=== PATIENT | female | born 1965 | race Caucasian/White ===

== ENCOUNTER 2024-07-02 11:31 | Outpatient (CLI) | payer BC, SELFPAY ==
--- NOTE | 2024-07-02 11:50 | XR_ITS ---
FINAL REPORT CLINICAL HISTORY: assess fecal burden-stool in right colon COMPARISON: None FINDINGS: SINGLE VIEW ABDOMEN A single view of the abdomen was obtained. There is a nonobstructive bowel gas pattern. There is moderate stool present in the right colon, with moderate to large stool present in the left colon. There are no abnormally dilated loops of small bowel. No abnormal calcifications are identified. Postoperative changes are present in the left upper quadrant. IMPRESSION: Nonobstructive bowel gas pattern with a moderate to large stool burden as described above. Reviewed, Interpreted and Dictated by Rahul Yeager III, MD Transcribed by Shruti Conte Authenticated and [facility]
== END 2024-07-02 23:59 | disposition home or self-care (01) ==
PROVIDERS: PCP Family Medicine; Visit Provider Internal Medicine Gastroenterology
DX: R14.0 Abdominal distension (gaseous) (principal); K30 Functional dyspepsia
CPT/HCPCS: 74018

== ENCOUNTER 2024-07-04 15:39 | Outpatient (CLI) | payer BC, SELFPAY ==
[2024-07-07 15:18] LABS: Pancreatic Elastase, Fecal >800 (>200)
== END 2024-07-04 23:59 | disposition home or self-care (01) ==
LOC: LAB 15:41
PROVIDERS: PCP Internal Medicine Medical Oncology; Visit Provider Internal Medicine Gastroenterology
DX: R14.0 Abdominal distension (gaseous) (principal); K30 Functional dyspepsia
CPT/HCPCS: 82656

== ENCOUNTER 2024-10-06 11:47 | Day surgery (SDC) | payer BC, SELFPAY ==
[2024-10-02 14:19] VITALS: BMI 19.1
[2024-10-06 12:11] VITALS: BP 108/65; PULSE 76; RESP 18; TEMP 36.3; O2SAT 98
[2024-10-06] MEDS: LACTATED RINGERS 1000ML 1,000 ML 50 ML IV (12:21)
--- NOTE | 2024-10-06 12:49 | EXP.ANES.CKL ---
[facility] Disclaimer: The information contained in this section may have been updated after the patient was seen, as this information can be updated by other users. Medical History Celiac artery compression syndrome Anxiety and depression Surgical History History of hernia surgery History of ankle surgery Family History Father Cancer Social History (Updated 10/06/24 @ 12:13 by Silvia Tavarez RN) Smoking Status: Current every day smoker alcohol intake: current substance use type: denies use current occupational status: unemployed Travel in the last 8 weeks: None caffeine: Yes [facility] Anesthesia Checklist Patient Identification Patient Identification: Verbal (Name & ) Structural Data Admitted From: Home Planned Operative Procedure/s: egd Consent for Planned Operative Procedure(s) Verified: Yes NPO Status Verified Time NPO: 00:00 Airway Assessment Mallampati Score:: Class II C-Spine Mobility Assessed: Yes TMJ Mobility Assessed: Yes Dentition: Good Dentition Neurological Assessment Level of Consciousness: Awake, Alert and Appropriate Anesthesia Plan Anesthesia Risk discussed: Yes Anesthesia Plan: Verified ASA Class: II Anesthesia Type: MAC
--- NOTE | 2024-10-06 13:48 | EXP.HP ---
History of Present Illness *Admission Date: 10/06/24 *Reason for visit:: Dyspepsia *History of present illness: Mrs. Jean is a 59-year-old female who is here for initial gastroenterology consultation secondary to ongoing severe dyspepsia. She reports epigastric abdominal pain, bloating, nausea and early satiety. She gets moderate gassiness and belching. She reports regular bowel function but sometimes has softer stools. 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 She did have several CT angiograms and had reparative surgery at [facility] on 09/16/2021. This did not result in any complete resolution of her symptoms. She is now on hydrocodone for her abdominal pain. She does have a history of moderate anxiety disorder as well. The patient's last colonoscopy was 5 to 10 years ago. She has not had any recent endoscopy. She does take hydrocodone, Zofran and Phenergan. She does have some trouble maintaining weight and states that she will have pain after eating/postprandially. [facility] Disclaimer: The information contained in this section may have been updated after the patient was seen, as this information can be updated by other users. Medical History Celiac artery compression syndrome Anxiety and depression Surgical History History of hernia surgery History of ankle surgery Family History Father Cancer Social History (Updated 10/06/24 @ 12:50 by Margarito Bowling CRNA) Smoking Status: Current every day smoker alcohol intake: current substance use type: denies use current occupational status: unemployed Travel in the last 8 weeks: None caffeine: Yes Have you lived/traveled outside [place] in past 30 days?: No Contact w/someone who lives/traveled outside [place] past 30 days?: No Exposure to someone with infectious disease in past 14 days?: No Do you have a fever (greater than 100.4 F or 38 C)?: No Have you tested positive for COVID-19: No Exposed to someone with COVID-19 in past 14 days?: No Do you have a sore throat?: No Do you have a cough?: No Do you have any weakness?: No Are you experiencing any nausea/vomitting?: No Do you have any diarrhea?: No Are you experiencing any unusual bleeding?: No Do you have any muscle aches/pain?: No Do you have any abdominal pain?: No Are you experiencing loss of taste or smell?: No Review of Systems Review of Systems Review of systems (narrative): Negative *Cardiovascular Comments: Negative *Gastrointestinal Comments: Negative *Genitourinary Comments: Negative *Musculoskeletal Comments: Negative *Neurologic Comments: Negative Meds Home Medications and Allergies Home Medications ?Medication ?Instructions ?Recorded ?Confirmed ?Type escitalopram oxalate 20 mg tablet 20 mg PO DAILY 06/30/24 10/06/24 History hydrocodone 10 mg-acetaminophen 1 tab PO Q6H PRN Pain 06/30/24 10/06/24 History 325 mg tablet buspirone 10 mg tablet 10 mg PO BID #60 tabs 07/02/24 10/06/24 Rx ondansetron 8 mg disintegrating 8 mg PO Q12H PRN . 07/02/24 10/06/24 History tablet promethazine 25 mg tablet 25 mg PO HS 07/02/24 10/06/24 History Lactobacil.acidophilus-Bifido.animalis 1 cap PO DAILY 10/02/24 10/06/24 History 5 billion cell sprinkle capsule (Probiotic) New Prescriptions to Start Prescriptions: Allergies Allergy/AdvReac Type Severity Reaction Status Date / Time No Known Allergies Allergy Verified 10/06/24 12:08 Exam Data for Last 24 hours Vital signs and Labs for Last 24 Hours: Temp Pulse Resp BP Pulse Ox O2 Del Method 97.4 F L 76 18 108/65 L 98 Room Air 10/06/24 12:11 10/06/24 12:11 10/06/24 12:11 10/06/24 12:11 10/06/24 12:11 10/06/24 12:11 *Routine HEENT Exam Head: Present normocephalic Eye: Present EOMI and PERRL ENT: Present mucous membranes moist *Routine Neck Exam Neck: Present supple *Routine Respiratory Exam Respiratory: Present CTA bilaterally *Routine Cardiovascular Exam Cardiovascular: Present RRR *Routine Abdominal Exam Abdominal: Present soft and normoactive bowel sounds; Absent tenderness *Routine Rectal Exam Rectal:: deferred *Routine Genitalia Exam Genitalia:: deferred *Routine Extremities Exam Extremities: Absent cyanosis, clubbing or edema *Routine Skin Exam Skin: Present warm; Absent rash *Routine Neurological Exam Neurological: Present alert and oriented X3 Assessment and Plan *Assessment and plan (1) Functional dyspepsia: Status: Acute Category: Medical Code(s): K30 - Functional dyspepsia (2) Epigastric pain: Status: Acute Category: Medical Code(s): R10.13 - Epigastric pain (3) Nausea: Status: Acute Category: Medical Code(s): R11.0 - Nausea (4) Bloating: Status: Acute Category: Medical Code(s): R14.0 - Abdominal distension (gaseous) Plan A/P: 1. Moderate to severe dyspepsia with epigastric pain, nausea and bloating is the preprocedural diagnosis. The patient will be anesthetized/sedated using MAC sedation. The patient has been seen and examined. Cardiac and lung assessment prior to the examination is stable. Proceed with planned diagnostic EGD
--- NOTE | 2024-10-06 13:58 | HMH.PROCNOTE ---
[facility] Procedure Note Date: 10/06/24 Time: 14:06 Procedure Note:: Upper Endoscopy Procedure Report: Esophagogastroduodenoscopy with cold biopsies Endoscopost: Malachi Ramirez II, MD Referring Physician: Catherine Kent MD Date of Procedure: October 06, 2024 Equipment: Olympus GIF 190 standard upper endoscope Sedation: MAC sedation Indications: Mrs. Jean is a 59-year-old female who is here for diagnostic upper endoscopy secondary to ongoing severe dyspepsia. She reports epigastric abdominal pain, bloating, nausea and early satiety. She gets moderate gassiness and belching. She reports regular bowel function but sometimes has softer stools. 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 She did have several CT angiograms and had reparative surgery at [facility] on 09/16/2021. This did not result in any complete resolution of her symptoms. She is now on hydrocodone for her abdominal pain. She does have a history of moderate anxiety disorder as well. The patient's last colonoscopy was 5 to 10 years ago. She has not had any recent endoscopy. She does take hydrocodone, Zofran and Phenergan. She does have some trouble maintaining weight and states that she will have pain after eating/postprandially. Procedure: Prior to the procedure, a history and physical exam was performed, and patient's medications and allergies were reviewed. The risks, benefits and alternatives of the sedation and procedure were discussed with the patient. All questions were answered and informed consent was obtained. The patient was brought to the procedure room. Patient identification and proposed procedure were verified by the physician and the nurse. The patient was placed in a left lateral decubitus position and the scope was passed under direct vision. Throughout the procedure, the patient's blood pressure, pulse, and oxygen saturations were monitored continuously. The upper GI endoscopy was accomplished without difficulty. The patient tolerated the procedure well. Findings: The scope was passed directly into the upper esophagus and advanced to the third portion of the duodenum. The post bulbar duodenum, ampulla and duodenal bulb were normal with normal mucosa and conniventes. Cold biopsies were taken from the first portion of duodenum and duodenal bulb to rule out celiac disease. The scope was withdrawn through a normal duodenal bulb and pylorus into the stomach. There was moderate linear reactive gastropathy of the antrum and body with very superficial erosion focally cold biopsies were taken separately from the antrum and lesser curvature to rule out H. pylori. Upon retroflexion there was a very small sliding 1 to 2 cm hiatal hernia. The fundus of the stomach was normal. The scope was then withdrawn into the esophagus. There is no evidence of reflux esophagitis or Parker's. There were tertiary contractions and mild esophageal dysmotility. The remainder of the esophageal mucosa was normal. Impression: 1. Moderate linear reactive gastropathy (antrum and body) 2. Mild esophageal dysmotility with very small sliding 1 to 2 cm hiatal hernia Plan: I will follow-up the biopsies. The patient did have a larger stool burden on abdominal films. Her fecal elastase testing was normal. I have recommended Iberogast and buspirone. I would also recommend combined fiber bowel regimen (MiraLAX plus Citrucel) daily. Most of this bile reflux and her symptoms of dyspepsia are related to and driven by lower intestinal gas pressure gradients/high gas pressure buildup resulting in backflow of bile and peptic fluid from the duodenum into the stomach (duodenal reflux). This gas production (carbon dioxide, hydrogen, methane, etc.) from the lower intestinal tract is the byproduct of colonic bacterial fermentation. This colonic fermentation occurs when there is more carbohydrate (dietary starches, sugars and high residue plant fiber) substrate that does not get digested (in the middle or small intestine) or occurs when there is colonic fecal buildup and colonic bacterial overgrowth. This indeed leads to bloating and the gas pressure buildup with gas pressure gradients that do drive backflow and dyspepsia. We will discuss additional diagnostic and treatment options.
[2024-10-06 14:00] VITALS: O2SAT 99
[2024-10-06 14:13] VITALS: BP 97/61; PULSE 65; RESP 15; TEMP 36.2; O2SAT 94
[2024-10-06 14:23] VITALS: BP 94/64; PULSE 60; RESP 16; O2SAT 94
[2024-10-06 14:33] VITALS: BP 104/64; PULSE 65; RESP 16; O2SAT 94
[2024-10-06 14:43] VITALS: BP 112/63; PULSE 60; RESP 18; O2SAT 95
== END 2024-10-06 15:04 | disposition home or self-care (01) ==
PROVIDERS: PCP Family Medicine; Visit Provider Internal Medicine Gastroenterology
PROC: 0DJ08ZZ Inspection of Upper Intestinal Tract, Via Natural or Artificial Opening Endoscopic (ICD-10-PCS; CPT 43239; principal; 2024-10-06 13:30)
DX: K30 Functional dyspepsia (principal); R11.0 Nausea; R14.0 Abdominal distension (gaseous); R68.81 Early satiety; K31.9 Disease of stomach and duodenum, unspecified; K22.4 Dyskinesia of esophagus; K44.9 Diaphragmatic hernia without obstruction or gangrene
CPT/HCPCS: 43239; J7120